=== PATIENT | female | born 1940 | race Caucasian/White ===

== ENCOUNTER 2017-01-03 13:56 | Inpatient (IN) | payer MEDICARE, OTHER ==
--- NOTE | ~2017-01-03 | DS ---
Unit #: [id number] #: [id number] Patient: YAYO ROBLES [id number] [address] [place], [place] [address] [id number] I MR#: [id number] NAME: YAYO ROBLES. ROOM: 468 Age: 76 Sex: F Admission Date: 01/03/2017 : 1940 Discharge Date: Attending Physician: Pranay Casarez M.D. DISCHARGE SUMMARY CONSULTATIONS None. PROCEDURE PERFORMED On 01/04/2017, she underwent laparoscopic cholecystectomy. ADMITTING DIAGNOSIS Abdominal pain. DISCHARGE DIAGNOSIS Acute cholecystitis. SECONDARY DIAGNOSES Diabetes, morbid obesity. She also has hypertension and chronic obstructive pulmonary disease. BRIEF HOSPITAL COURSE This is a 76-year-old lady, who presented to the emergency room with some right upper quadrant pain and leukocytosis. She had a history of gallstones. She is admitted and started on IV fluids and antibiotics. She underwent laparoscopic cholecystectomy. Postoperatively, she was afebrile and tolerating a diet and wanted to go home. I had offered to stay another day, but she was fairly adamant about being discharged. DISPOSITION Discharged to home. FOLLOWUP She is to follow up with me in the office in 2 weeks. She has been instructed to call me if she has any problems including fevers or worsening abdominal pain, or nausea, vomiting. She has been advised it is okay to shower and no driving until off pain pills for 24 hours. Follow up with me in the office in 2 weeks. She is to resume her home medications and I gave her a script for [place]. Dictated by... Dell Thompson III, M.D. VCL/jak TD: 01/05/2017 06:57 JOB #: [id number] Unit #: [id number] #: [id number] Patient: YAYO ROBLES DISCHARGE SUMMARY Page 1 of 1 X Dell Thompson III, MD DISCHARGE SUMMARY
--- NOTE | ~2017-01-03 | US67 ---
[facility] A Service of [facility] & [facility] RADIOLOGY TEXT RESULTS PATIENT: YAYO ROBLES LOCATION: [facility] 468-01 : 42 UNIT #: [id number] AGE: [address]: Pranay Casarez MD SEX: F ORDER DR: [id number] [facility] [address] [place], [place] [address] [id number] I MR#: [id number] Acc #: [id number] NAME: YAYO ROBLES : 1940 SEX: F STUDY DATE/TIME: 01/03/2017 16:56 UNIT: [facility] ROOM: [facility] STUDY DESCRIPTION: US Gallbladder Attending Physician: Pranay Casarez M.D. Ordering Physician: Pranay Casarez M.D. Primary Care Physician: No Primary Care Physician MEDICAL IMAGING REPORT This report is preliminary unless electronic signature is present EXAM Gallbladder ultrasound HISTORY Right upper quadrant pain for 3 months. FINDINGS Ultrasound examination of the gallbladder demonstrates multiple gallstones measuring up to approximately 1 cm. Borderline gallbladder wall thickening measuring close to 3 mm. Borderline gallbladder distension. No biliary ductal dilatation. The common bile duct measures 4 mm in diameter. No hepatic mass adjacent the gallbladder fossa. IMPRESSION 1. Gallstones measure up to approximately 1 cm. 2. Borderline gallbladder wall thickening measuring 3 mm and there is also borderline gallbladder distension. No biliary ductal dilatation. No fluid adjacent to the gallbladder. Dictated by... Keron Marion M.D. THIS IS AN ELECTRONICALLY VERIFIED REPORT Keron Marion M.D. at 01/03/2017 11:37 PM MICHAELA/ruma TD: 01/03/2017 23:16 JOB #: [id number] MEDICAL IMAGING REPORT Page 1 of 1 COPY
--- NOTE | ~2017-01-03 | CO ---
Unit #: [id number] #: [id number] Patient: YAYO ROBLES [id number] [address] [place], [place] [address] [id number] I MR#: [id number] NAME: YAYO ROBLES ROOM: 468 Age: 76 Sex: F Admission Date: 01/03/2017 : 1940 Attending Physician: Pranay Casarez M.D. Consultation Date: 01/03/2017 CONSULTATION REPORT HISTORY OF PRESENT ILLNESS Ms. Robles is a 76-year-old female, who was sent to the emergency room by her home care medical service. By history, she has been having right flank and back pain for several weeks and an ultrasound done by the home care service reportedly shows cholelithiasis. Today, blood work was done and showed that she had a white count of 17,000, and she was called by the home care service told to come to the emergency room. Here, she is awake, alert, and oriented. Denies any fever, chills, nausea, or vomiting, and said that she does not have any significant pain today. She last ate last evening and she said she ate [place]. Again, no fever or chills today. PAST MEDICAL HISTORY Hypertension, diabetes, reflux, osteoarthritis, depression, COPD, bronchitis, allergic rhinitis, anxiety, obesity, congestive heart failure, depression, chronic tension headaches, irritable bowel syndrome, chronic lumbar discomfort. She has had a hysterectomy and tonsillectomy. ALLERGIES She has a history of allergy to codeine. CURRENT MEDICATIONS Include lisinopril 20 mg q.a.m., 10 mg q.p.m.; omeprazole 40 mg daily; metformin 1000 mg in the morning and 500 mg at night; Lexapro 10 mg daily; multivitamins; Combivent 20/100 mcg one puff b.i.d.; glyburide 5 mg b.i.d.; Celexa 10 mg daily; hydrochlorothiazide 12.5 mg daily; naproxen 500 mg b.i.d.; metoprolol 25 mg daily. FAMILY HISTORY Diabetes and hypertension. SOCIAL HISTORY Lives at home with her son. She denies use of tobacco. Said she drinks an occasional beer. She is retired. REVIEW OF SYSTEMS No fever, chills, night sweats. No hematemesis, hematochezia, or melena. No productive cough. No dysuria. She has chronic diarrhea that does not exhibit any hematochezia or melena. She denies any hematemesis. PHYSICAL EXAMINATION VITAL SIGNS: Temperature is 97.5, pulse 91 and regular, respirations 18, and blood pressure 134/62. GENERAL: Awake, alert, and oriented. HEENT: No carotid bruits. No scleral icterus. Unit #: [id number] #: [id number] Patient: YAYO ROBLES CARDIAC: Regular rate and rhythm without murmur. LUNGS: Clear in all pinon. ABDOMEN: Soft. There is no guarding or mass in the right upper quadrant. She does complain of some flank tenderness, but again there is no involuntary guarding or mass. EXTREMITIES: No clubbing, cyanosis, or edema. NEUROLOGIC: Grossly intact. DIAGNOSTIC STUDIES LABORATORY RESULTS: Comprehensive metabolic panel is essentially normal except for a glucose of 229. In particular, total bilirubin is 0.3 and her liver chemistries were normal. Lipase is 60. Hemoglobin 11.2, white count 18,100, differential is pending, platelets 455,000. Urinalysis is pending. IMAGING STUDIES: Ultrasound of the gallbladder pending. ASSESSMENT AND PLAN A 76-year-old female with possible acute cholecystitis. I have suggested to the patient admitted to the hospital, start on IV antibiotics, and an ultrasound of the gallbladder will be obtained for further evaluation. We discussed the possibility of cholecystectomy. The patient and her family understand my concerns; however, the patient states she wants to go home. If they want to leave the hospital, it would be against medical advice. Dictated by... Diamond Angel/jak TD: 01/04/2017 05:44 JOB #: [id number] CONSULTATION REPORT Page 1 of 1 X Pranay Casarez MD CONSULTATION REPORT
--- NOTE | ~2017-01-03 | OR ---
Unit #: [id number] #: [id number] Patient: YAYO ROBLES [id number] [address] [place], [place] [address] [id number] Ev[place] MR#: [id number] NAME: YAYO ROBLES. ROOM: [facility] Date of Procedure: 01/03/2017 Admission Date: 01/03/2017 Surgeon: Dell Thompson III, M.D. : 1940 Attending Physician: Pranay Casarez M.D. OPERATIVE REPORT PREOPERATIVE DIAGNOSIS Acute cholecystitis. POSTOPERATIVE DIAGNOSIS Acute cholecystitis. PROCEDURE PERFORMED Laparoscopic cholecystectomy. CUSTOMER SERVICE ASSOCIATE Dr. Fan Sadler. SPECIMEN Gallbladder to Pathology. COMPLICATIONS None apparent. ESTIMATED BLOOD LOSS Minimal. INDICATIONS FOR PROCEDURE This is a 76-year-old lady, who presented with some right upper quadrant pain. She had a history of gallstones and also had leukocytosis. She is here today for laparoscopic cholecystectomy. DESCRIPTION OF PROCEDURE After consent was obtained, the patient was brought to the operating room and placed in the supine position. General anesthetic was administered and her abdomen was prepped and draped in standard surgical fashion. I made a 5-mm incision in the right upper quadrant. I used Optiview to enter into the peritoneal cavity without any difficulty. CO2 pneumoperitoneum was then established. Next, a 5-mm trocar was placed above the umbilicus. An 11 mm port was placed in the midepigastric region and a third 5-mm port was placed in the right lateral subcostal region. Gallbladder was very distended. I aspirated the gallbladder with a needle. This allowed me to retract it superiorly and laterally better. Once doing so, I had to dissect out the cystic duct and cystic artery and once these were carefully identified, I placed two clips proximally and one clip distally along both structures. They were then divided. The gallbladder was then taken off the liver bed using the hook cautery. There was some spillage of bile that was aspirated at the end of the case. Unit #: [id number] #: [id number] Patient: YAYO ROBLES I placed the gallbladder into an EndoCatch bag and retrieved it through the epigastric port site after some dilatation of the fascia. I irrigated again, had good hemostasis, and all needle, sponge, and instrument counts were correct x2. I reapproximated the fascial defect at the epigastric site with a neoClose device. The trocars were all removed and pneumoperitoneum was released. The incisions were all injected with 0.25% plain Marcaine. I reapproximated the skin edges with interrupted 4-0 Vicryl subcuticular suture. Steri-Strips were then applied. The patient tolerated the procedure without any problems and returned to recovery room in stable condition. Dictated by... Dell Thompson III, M.D. VCL/jak TD: 01/05/2017 07:20 JOB #: [id number] OPERATIVE REPORT Page 1 of 1 X Dell Thompson III, MD X PROCEDURE OPERATIVE NOTE
[2017-01-03 13:21] LABS: BASOPHIL# 0.1 X10e3 (0-0.3); BASOPHIL% 0.5 % (0-2.5); EOSINOPHIL# 0.7 X10e3 (0-0.7); EOSINOPHIL% 3.8 % (0.0-7.0); HEMOGLOBIN 11.2 gm/dL (12.0-16.0); LYMPHOCYTE# 2.8 X10e3 (1.0-3.5); LYMPHOCYTE% 15.2 % (17.0-45.0); MEAN CELL VOLUME 86.1 FL (83-96); MEAN CORPUSCULAR HEMOGLOBIN 27.5 PG (28-34); MEAN PLATELET VOLUME 7.7 FL (6.5-11.5); MONOCYTE# 1.2 X10e3 (0-1.0); MONOCYTE% 6.3 % (3.0-12.0); NEUTROPHIL# 13.4 X10e3 (1.5-7.1); NEUTROPHIL% 74.2 % (40-75); PLATELET COUNT 455 X10e3 (140-420); RED BLOOD COUNT 4.06 X10e (3.90-5.30); RED CELL DISTRIBUTION WIDTH 15.3 % (11.0-15.5); WHITE BLOOD COUNT 18.1 X10e3 (4.0-10.5)
[2017-01-03 13:35] LABS: DIFF IND YES
[~2017-01-03 13:56] MED LIST: COMBIVENT U/D3 M2 INH; ESCITALOPRAM OX10 MG PO; GLYNASE PO; HYDROCHLOROTH12.5 M1 PO; LEXAPRO PO; LISINOPRIL30 MG PO; METFORMIN HCL1000 M1 PO; METFORMIN HCL500 M3 PO; METOPROLOL TAR25 MG PO; MICRONASE5 M2 PO; MULTI VITAMIN1 EACH PO; NAPROSYN-EC500 M1 PO; OMEPRAZOLE40 M1 PO
[2017-01-03 14:04] LABS: ANISOCYTOSIS MOD; PLATELET ESTIMATE NORMAL (NORMAL); POIKILOCYTOSIS SL
[2017-01-03 14:33] LABS: ALBUMIN SERUM 3.6 g/dL (3.5-5.0); BILIRUBIN, DIRECT 0.1 mg/dL (0.0-0.2); BILIRUBIN,INDIRECT 0.2 mg/dL (0.0-0.9); BILIRUBIN,TOTAL 0.3 mg/dL (0.2-2.0); BUN/CREATININE RATIO 13.33; CALCIUM SERUM 8.8 mg/dL (8.4-10.2); CREATININE SERUM 1.2 mg/dL (0.6-1.4); GLOM FILT RATE Estimated 44.5 mL/min (>60); POTASSIUM 4.1 mmol/L (3.5-5.1); PROTEIN TOTAL SERUM 7.2 g/dL (6.0-8.3)
[2017-01-04 04:07] LABS: BASOPHIL# 0.2 X10e3 (0-0.3); BASOPHIL% 0.9 % (0-2.5); EOSINOPHIL# 0.6 X10e3 (0-0.7); EOSINOPHIL% 3.1 % (0.0-7.0); HEMOGLOBIN 10.4 gm/dL (12.0-16.0); LYMPHOCYTE# 3.8 X10e3 (1.0-3.5); LYMPHOCYTE% 19.2 % (17.0-45.0); MEAN CELL VOLUME 85.9 FL (83-96); MEAN CORPUSCULAR HEMOGLOBIN 27.2 PG (28-34); MEAN CORPUSCULAR HGB CONC 31.6 g/dL (30-36); MEAN PLATELET VOLUME 7.7 FL (6.5-11.5); MONOCYTE# 1.3 X10e3 (0-1.0); MONOCYTE% 6.7 % (3.0-12.0); NEUTROPHIL# 13.9 X10e3 (1.5-7.1); NEUTROPHIL% 70.1 % (40-75); PLATELET COUNT 425 X10e3 (140-420); RED BLOOD COUNT 3.84 X10e (3.90-5.30); RED CELL DISTRIBUTION WIDTH 15.6 % (11.0-15.5); WHITE BLOOD COUNT 19.8 X10e3 (4.0-10.5)
[2017-01-04 04:08] LABS: DIFF IND NO
[2017-01-04 04:32] LABS: ALBUMIN SERUM 3.3 g/dL (3.5-5.0); BILIRUBIN,TOTAL 0.6 mg/dL (0.2-2.0); BUN/CREATININE RATIO 11.66; CALCIUM SERUM 8.5 mg/dL (8.4-10.2); CREATININE SERUM 1.2 mg/dL (0.6-1.4); GLOM FILT RATE Estimated 44.5 mL/min (>60); MAGNESIUM 1.7 mg/dL (1.6-3.0); PHOSPHOROUS 3.6 mg/dL (2.5-4.6); POTASSIUM 4.4 mmol/L (3.5-5.1); PROTEIN TOTAL SERUM 6.7 g/dL (6.0-8.3)
[2017-01-05 03:56] LABS: HEMATOCRIT 32.8 % (35.0-45.0); HEMOGLOBIN 10.3 gm/dL (12.0-16.0); MEAN CELL VOLUME 86.3 FL (83-96); MEAN CORPUSCULAR HEMOGLOBIN 27.1 PG (28-34); MEAN CORPUSCULAR HGB CONC 31.4 g/dL (30-36); MEAN PLATELET VOLUME 7.6 FL (6.5-11.5); RED BLOOD COUNT 3.8 X10e (3.90-5.30); RED CELL DISTRIBUTION WIDTH 15.3 % (11.0-15.5); WHITE BLOOD COUNT 17.1 X10e3 (4.0-10.5)
[2017-01-05 04:17] LABS: BILIRUBIN,TOTAL 0.3 mg/dL (0.2-2.0); BUN/CREATININE RATIO 10.9; CALCIUM SERUM 8.7 mg/dL (8.4-10.2); CREATININE SERUM 1.1 mg/dL (0.6-1.4); GLOM FILT RATE Estimated 49.4 mL/min (>60); POTASSIUM 5.1 mmol/L (3.5-5.1); PROTEIN TOTAL SERUM 6.1 g/dL (6.0-8.3)
[2017-01-05] MEDS ORDERED: NORCO 7.5-3251 EACH PO (12:27)
== END 2017-01-05 13:25 | disposition home or self-care (01) | DRG 418 ==
LOC: CED 13:56 → CEDOF 14:35 → C4C 17:20
PROVIDERS: Emergency Medicine; Specialist; Surgery
PROC: 0FT44ZZ Resection of Gallbladder, Percutaneous Endoscopic Approach (ICD-10-PCS; principal; 2017-01-03)
DX: K80.00 Calculus of gallbladder with acute cholecystitis without obstruction (principal); Z68.42 Body mass index [BMI] 45.0-49.9, adult; J44.9 Chronic obstructive pulmonary disease, unspecified; I11.0 Hypertensive heart disease with heart failure; I50.9 Heart failure, unspecified; E11.9 Type 2 diabetes mellitus without complications; E66.01 Morbid (severe) obesity due to excess calories; Z90.710 Acquired absence of both cervix and uterus; F41.9 Anxiety disorder, unspecified; K58.9 Irritable bowel syndrome, unspecified; Z79.84 Long term (current) use of oral hypoglycemic drugs; Z83.3 Family history of diabetes mellitus; Z82.49 Family history of ischemic heart disease and other diseases of the circulatory system
CPT/HCPCS: 36415; 76705; 80048; 80053; 80076; 82150; 82947; 83690; 83735; 84100; 85025; 85027; 88304; 94640; 94760; 99285; C9113; J0330; J1650; J1815; J1956; J2270; J2405; J2543; J2710; J3010

== ENCOUNTER 2017-03-11 13:11 | Emergency (ER) | payer MEDICARE, OTHER ==
--- NOTE | ~2017-03-11 | CR230 ---
[facility] A Service of [facility] & [facility] RADIOLOGY TEXT RESULTS PATIENT: YAYO ROBLES LOCATION: [facility] : 42 UNIT #: [id number] AGE: [address]: Milton Grant MD SEX: F ORDER DR: [id number] [facility] [address] [place], [place] [address] [id number] E MR#: [id number] Acc #: [id number] NAME: YAYO ROBLES : 1940 SEX: F STUDY DATE/TIME: 03/11/2017 13:59 UNIT: [facility] ROOM: STUDY DESCRIPTION: CR Shoulder Min 2 View Rt Attending Physician: Milton Grant M.D. Ordering Physician: Milton Grant M.D. Primary Care Physician: No Primary Care Physician MEDICAL IMAGING REPORT This report is preliminary unless electronic signature is present EXAM Right shoulder series. HISTORY Pain. 2 weeks. No known injury. Right shoulder pain. FINDINGS AP internal and external rotation views of the right shoulder are presented. Transscapular view attempted. The study is of poor quality due to poor radiographic technique, the apparent transscapular view is rendered nondiagnostic due to radiographic processing artifact. There is poor patient positioning. The study limited by patient body habitus as well. No grossly displaced fractures seen. No gross traumatic joint malalignment. Degenerative changes in the acromioclavicular joint. Periarticular soft tissues show no clearly acute abnormality. The visualized ribs are intact. Visualized pulmonary parenchyma clear. Dictated by... Fan Cruz M.D. THIS IS AN ELECTRONICALLY VERIFIED REPORT Fan Cruz M.D. at 03/13/2017 11:31 AM PIPPA/memo TD: 03/11/2017 22:32 JOB #: [id number] MEDICAL IMAGING REPORT Page 1 of 1 COPY
[~2017-03-11 13:11] MED LIST changes: +NORCO 7.5-3251 EACH PO
== END 2017-03-11 15:14 | disposition home or self-care (01) ==
LOC: CED 13:11
DX: S46.811A Strain of other muscles, fascia and tendons at shoulder and upper arm level, right arm, initial encounter (principal); E11.9 Type 2 diabetes mellitus without complications; I11.0 Hypertensive heart disease with heart failure; I50.9 Heart failure, unspecified; J44.9 Chronic obstructive pulmonary disease, unspecified; M54.5 Low back pain; G89.29 Other chronic pain; Z90.710 Acquired absence of both cervix and uterus; Z98.890 Other specified postprocedural states; K21.9 Gastro-esophageal reflux disease without esophagitis; Z88.8 Allergy status to other drugs, medicaments and biological substances; X58.XXXA Exposure to other specified factors, initial encounter; Y92.9 Unspecified place or not applicable
CPT/HCPCS: 73030; 99283

== ENCOUNTER 2017-04-04 22:36 | Emergency (ER) | payer MEDICARE, OTHER ==
--- NOTE | ~2017-04-04 | CR63 ---
[facility] A Service of [facility] & [facility] RADIOLOGY TEXT RESULTS PATIENT: YAYO ROBLES LOCATION: [facility] : 42 UNIT #: [id number] AGE: [address]: Jb Han MD SEX: F ORDER DR: [id number] [facility] [address] [place], [place] [address] [id number] E MR#: [id number] Acc #: [id number] NAME: YAYO ROBLES : 1940 SEX: F STUDY DATE/TIME: 04/05/2017 4:31 UNIT: [facility] ROOM: STUDY DESCRIPTION: CR Chest 2 View Attending Physician: Shaun Han M.D. Ordering Physician: Eugene Monae Aprn Primary Care Physician: Primary Care Physician No MEDICAL IMAGING REPORT This report is preliminary unless electronic signature is present EXAM Two-view chest INDICATION Shortness of air, back pain for the past 2 days. PROCEDURE Frontal and lateral views of the chest. COMPARISON 10/22/2008. FINDINGS Moderate cardiomegaly. No dense consolidation, pleural fluid or pneumothorax. IMPRESSION Cardiomegaly. No active process. Dictated by... Shaun Salter M.D. THIS IS AN ELECTRONICALLY VERIFIED REPORT Shaun Salter M.D. at 04/05/2017 10:27 PM SASHA/sadiq TD: 04/05/2017 09:00 JOB #: [id number] MEDICAL IMAGING REPORT Page 1 of 1 COPY
--- NOTE | ~2017-04-04 | NM69 ---
[facility] A Service of [facility] & [facility] RADIOLOGY TEXT RESULTS PATIENT: YAYO ROBLES LOCATION: [facility] : 42 UNIT #: [id number] AGE: [address]: Jb Han MD SEX: F ORDER DR: [id number] [facility] [address] [place], [place] [address] [id number] E MR#: [id number] Acc #: [id number] NAME: YAYO ROBLES : 1940 SEX: F STUDY DATE/TIME: 04/05/2017 8:48 UNIT: [facility] ROOM: STUDY DESCRIPTION: NM Pulm Vent and Perf Attending Physician: Jb Han Ordering Physician: Eugene Monae Aprn Primary Care Physician: Primary Care Physician No MEDICAL IMAGING REPORT This report is preliminary unless electronic signature is present EXAM Ventilation-perfusion radionuclide lung scan 04/05/2017 HISTORY Right chest wall pain. Pain on right side ribs, weakness down arms and pain 1 month duration. FINDINGS Following inhalation of 34.5 mCi technetium 99m aerosolized DTPA and intravenous administration 6.0 mCi technetium 99m MAA, multiple views of thorax were obtained. Comparison to chest radiographs from same date. Homogeneous distribution of radiotracer on perfusion and ventilation images. No perfusion ventilation mismatches. Normal study. This virtually excludes the possibility of pulmonary embolus. IMPRESSION Normal study. No evidence of pulmonary thromboembolic disease. Dictated by... Fan Cruz M.D. THIS IS AN ELECTRONICALLY VERIFIED REPORT Fan Cruz M.D. at 04/06/2017 6:42 PM PIPPA/jolly TD: 04/05/2017 13:11 JOB #: [id number] MEDICAL IMAGING REPORT Page 1 of 1 COPY
[2017-04-05 02:27] LABS: URINE SOURCE CLEAN CATCH
[2017-04-05 02:33] LABS: URINE APPEARANCE CLOUDY; URINE BILIRUBIN NEG (NEG); URINE BLOOD TRACE (NEG); URINE COLOR YELLOW; URINE GLUCOSE NEG (NEG); URINE KETONE NEG (NEG); URINE LEUKOCYTE ESTERASE 2+ (NEG); URINE NITRATE POS (NEG); URINE PH 5.5 (5-8); URINE PROTEIN 1+ (NEG); URINE SPECIFIC GRAVITY 1.023 (1.003-1.035)
[2017-04-05 02:35] LABS: CULTURE INDICATED? YES; URINE BACTERIA AUWI 4+ (NEGATIVE); URINE SQUAMOUS EPITHELIAL CELL NONE SEEN /[HPF]; UWBCS1 AUWI 200-300 (0-5)
[2017-04-05 03:01] LABS: POC - CKMB 1.8 ng/mL (0.0-7.9); POC - TROPONIN <0.05 ng/mL (<=0.05)
[2017-04-05 03:14] LABS: BASOPHIL# 0.3 X10e3 (0-0.3); BASOPHIL% 1.3 % (0-2.5); DIFF IND YES; EOSINOPHIL# 0.5 X10e3 (0-0.7); EOSINOPHIL% 2.3 % (0.0-7.0); HEMATOCRIT 37.1 % (35.0-45.0); HEMOGLOBIN 11.7 gm/dL (12.0-16.0); LYMPHOCYTE# 3.5 X10e3 (1.0-3.5); LYMPHOCYTE% 17.6 % (17.0-45.0); MEAN CORPUSCULAR HEMOGLOBIN 26.5 PG (28-34); MEAN CORPUSCULAR HGB CONC 31.5 g/dL (30-36); MEAN PLATELET VOLUME 8.1 FL (6.5-11.5); MONOCYTE# 1.4 X10e3 (0-1.0); MONOCYTE% 6.9 % (3.0-12.0); NEUTROPHIL# 14.3 X10e3 (1.5-7.1); NEUTROPHIL% 71.9 % (40-75); PLATELET COUNT 467 X10e3 (140-420); RED BLOOD COUNT 4.42 X10e (3.90-5.30); RED CELL DISTRIBUTION WIDTH 15.4 % (11.0-15.5); WHITE BLOOD COUNT 19.9 X10e3 (4.0-10.5)
[2017-04-05 03:37] LABS: ALBUMIN SERUM 3.6 g/dL (3.5-5.0); BILIRUBIN, DIRECT 0.1 mg/dL (0.0-0.2); BILIRUBIN,INDIRECT 0.5 mg/dL (0.0-0.9); BILIRUBIN,TOTAL 0.6 mg/dL (0.2-2.0); BUN/CREATININE RATIO 12.5; CALCIUM SERUM 8.6 mg/dL (8.4-10.2); CREATININE SERUM 1.2 mg/dL (0.6-1.4); GLOM FILT RATE Estimated 44.5 mL/min (>60); POTASSIUM 3.1 mmol/L (3.5-5.1); PROTEIN TOTAL SERUM 7.5 g/dL (6.0-8.3)
[2017-04-05 03:41] LABS: ANISOCYTOSIS SL; PLATELET ESTIMATE NORMAL (NORMAL); SMUDGE CELLS 3 /100; STOMATOCYTE PRESENT
== END 2017-04-05 12:39 | disposition home or self-care (01) ==
LOC: CED 22:36
DX: N39.0 Urinary tract infection, site not specified (principal); E87.6 Hypokalemia; B37.9 Candidiasis, unspecified; E11.9 Type 2 diabetes mellitus without complications; I10 Essential (primary) hypertension; Z90.49 Acquired absence of other specified parts of digestive tract; Z90.710 Acquired absence of both cervix and uterus; Z88.5 Allergy status to narcotic agent; Z79.899 Other long term (current) drug therapy
CPT/HCPCS: 36415; 71020; 78582; 80048; 80076; 81003; 82553; 83690; 84484; 85025; 85379; 87086; 87088; 87186; 96365; 99284; A9540; A9567; J0696